=== PATIENT | female | born 1935 | race Caucasian/White ===

== ENCOUNTER → 2017-01-26 | Outpatient (CLI) | payer MEDICARE, OTHER ==
[~2017-01-26] MED LIST: AMIODARONE HCL100 MG PO; ASCORBIC ACID500 MG PO; ASPIR 8181 MG PO; AUGMENTIN875 MG PO; CALCIUM GLUC500 MG PO; CAPTOPRIL25 MG PO; CLARITIN10 MG PO; CLOPIDOGREL75 MG PO; FEMARA 2.5 MG2.5 MG PO; FISH OIL1000 MG PO; HYDROCHLOROTHIA50 MG PO; K-TAB 10MEQ10 MEQ PO; LIPITOR10 MG PO; LOPRESSOR50 MG PO; MAG-OX-400(241400 MG PO; NEURONTIN600 MG PO; NORVASC5 MG PO; PLAVIX75 MG PO; PRINIVIL (ZESTR20 MG PO; THERAGRAN-M1 TAB PO; VITAMIN D-32000 UNI1 PO; VITAMIN E400 UNI1 PO; VITAMIN E400 UNI2 PO; XARELTO20 MG PO
== END | disposition disaster alternative care site (69) ==
LOC: GBCOE 08:16
DX: Z12.31 Encounter for screening mammogram for malignant neoplasm of breast (principal); Z85.3 Personal history of malignant neoplasm of breast; Z90.12 Acquired absence of left breast and nipple
CPT/HCPCS: G0202